=== PATIENT | female | born 1980 ===

== ENCOUNTER 2023-01-28 09:02 | Day surgery (SDC) | payer OTHER ==
[~2023-01-28] VITALS: Ht 154.9 cm; Wt 71.4 kg
--- NOTE | 2023-01-28 10:09 | NUR ---
01/28/23 Cele9 Yaquelin Castillo CIGAR HEAD PEGGER LINE USED WITH PATIENT AND IN ROOM WITH DR VARGAS, PATIENT VERBALIZED UNDERSTANDING.
--- NOTE | 2023-01-28 11:02 | NUR ---
01/28/23 1102 Mabel Rod 10ML OF EPI 1MG/1ML ON THE FIELD USED TO SOAK PLEDGETS. 9ML OF NORMAL SALINE MIXED AND VERIFIED WITH 1 ML OF OF EPI 1:1,000 (1MG/ML) TO MAKE EPI 1:10,000 FOR INJECTION AT THE OPSITE BY DR VARGAS. WET TOWELS PLACED ON PATIENTS FACE PRIOR TO USE OF CO2 LASER.
--- NOTE | 2023-01-28 11:25 | NUR ---
01/28/23 1125 DAYSI BAUTISTA ASSISTING WITH CARE
--- NOTE | 2023-01-28 11:55 | NUR ---
01/28/23 1155 DAYSI BAUTISTA, STUDENT NURSE ASSISTING WITH CARE. PATIENT IDENTIFIED A 6/10 FOR PAIN USING A VISUAL PAIN SCALE. PATIENT IS SITTING UP IN THE CHAIR, TOLERATING WATER AND POPSCICLE.
[2023-01-28 11:57] VITALS: BP 130/66
== END 2023-01-28 12:50 | disposition home or self-care (01) ==
LOC: ORSCSDS 09:02
PROVIDERS: Otolaryngology
PROC: 0CDV8ZZ Extraction of Left Vocal Cord, Via Natural or Artificial Opening Endoscopic (ICD-10-PCS; principal; 2023-01-28 10:00)
DX: R49.0 Dysphonia (principal); J38.1 Polyp of vocal cord and larynx
CPT/HCPCS: 88305; J0171; J1100; J2405; J2704; J2765; J3010